=== PATIENT | female | born 2000 | race African-American/Black ===

== ENCOUNTER 2020-05-18 18:08 | Emergency (ER) | payer OTHER ==
[~2020-05-18] VITALS: Ht 160 cm; Wt 36.4 kg
[2020-05-18 18:12] VITALS: TEMP 98.2
[2020-05-18 18:55] LABS: COLLECTION METHOD CATHETER
[2020-05-18] MEDS ORDERED: ALEVE 220MG220 MG PO (18:57)
[2020-05-18] MEDS ORDERED: XANAX 1MG1 MG PO (18:57)
[2020-05-18] MEDS ORDERED: D3-5050000 IU PO (18:58)
[2020-05-18] MEDS ORDERED: BACTRIM DS 8001 TAB PO (18:58)
[2020-05-18 19:06] LABS: BASO % 0.4 % (0.0-2.0); EOS # 0.1 (0.0-0.7); EOS % 1.7 % (0-4.0); GRAN # 2.6 (1.4-6.5); GRAN % 49.9 % (42.2-75.2); HEMOGLOBIN 11.4 g/dl (12.0-15.0); LYMPH # 2.1 (1.2-3.4); LYMPH % 39.7 % (20.0-51.0); MEAN CELL VOLUME 88 fl (80.0-95.0); MEAN CORPUSCULAR HEMOGLOBIN 28 pg (26.0-32.0); MEAN CORPUSCULAR HGB CONC 32 g/dl (33.0-37.0); MEAN PLATELET VOLUME 10.9 fl (7.4-10.4); MONO # 0.4 (0.1-0.6); MONO % 8.1 % (1.7-9.3); PLATELET COUNT 208 K/mm3 (130-400); RED BLOOD COUNT 4.01 M/mm3 (4.10-5.30); REDCELL DISTRIBUTION WIDTH-CV 12.5 % (11.5-14.5)
[2020-05-18 19:09] LABS: MUCOUS Present /lpf; PH 6 (5-8); SQUAMOUS EPITHELIAL 0-2 /hpf; URINE APPEARANCE Clear; URINE BACTERIA None Seen /hpf; URINE BILIRUBIN Negative (NEGATIVE); URINE BLOOD Negative (NEGATIVE); URINE COLOR Yellow; URINE GLUCOSE Negative (NEGATIVE); URINE KETONE Negative (NEGATIVE); URINE LEUKOCYTE ESTERASE Negative (NEGATIVE); URINE NITRATE Negative (NEGATIVE); URINE PROTEIN(semi-quant) 1+ (NEGATIVE); URINE RBC 0-2 /hpf; URINE UROBILINOGEN >=4.0 mg/dL (NEGATIVE)
[2020-05-18 19:10] LABS: ALBUMIN 4.1 gm/dL (3.5-5.0); BILIRUBIN,TOTAL 0.4 mg/dL (0.0-1.0); CALCIUM 9.2 mg/dL (8.4-10.2); CREATININE, serum 1.04 (0.52-1.25); POTASSIUM 3.9 mmol/L (3.4-5.0)
[2020-05-18 19:16] LABS: HEMATOCRIT 35.4 % (35.0-45.0)
[2020-05-18] MEDS ORDERED: ZOFRAN ODT4 MG PO (20:46)
[2020-05-18] MEDS ORDERED: PYRIDIUM200 M1 PO (20:46)
[2020-05-18 21:09] VITALS: BP 103/64; PULSE 70
== END 2020-05-18 21:00 | disposition home or self-care (01) ==
LOC: COL.ER 18:08
PROVIDERS: Emergency Medicine
DX: R30.0 Dysuria (principal)
CPT/HCPCS: J7030

== ENCOUNTER 2022-05-20 17:10 | Emergency (ER) | payer MEDICARE, MEDICAID ==
[~2022-05-20] VITALS: Ht 160 cm; Wt 37.7 kg
[~2022-05-20 17:10] MED LIST: ALEVE 220MG220 MG PO; BACTRIM DS 8001 TAB PO; D3-5050000 IU PO; PYRIDIUM200 M1 PO; XANAX 1MG1 MG PO; ZOFRAN ODT4 MG PO
[2022-05-20 17:20] VITALS: TEMP 98.2
[2022-05-20] MEDS ORDERED: PREDNISONE20 MG PO (18:59)
[2022-05-20 19:08] VITALS: BP 105/61; PULSE 77
== END 2022-05-20 19:08 | disposition home or self-care (01) ==
LOC: COL.ER 17:10
DX: R07.89 Other chest pain (principal); J45.909 Unspecified asthma, uncomplicated; Z91.040 Latex allergy status; Z20.822 Contact with and (suspected) exposure to COVID-19
CPT/HCPCS: J7512